=== PATIENT | female | born 1955 | race Caucasian/White ===

== ENCOUNTER 2017-03-15 21:40 | Emergency (ER) | payer BC ==
--- NOTE | 2017-03-15 21:52 | EDM.PDOC ---
ED HPI GENERAL MEDICAL PROBLEM - General Chief Complaint: General Stated Complaint: PAIN AND SWELLING IN RIGHT SIDE Time Seen by Provider: 03/15/17 21:52 - History of Present Illness INITIAL COMMENTS - FREE TEXT/NARRATIVE: 61-year-old female presents to emergency room with some abdominal wall discomfort. This started yesterday while she was reaching for some groceries at a store she reached to hard and felt something pull and give. Since that time she's noticed a swelling in her right upper abdomen. She had an open cholecystectomy many years ago. Since this time the patient's had some discomfort in the area if she moved in the wrong way. Otherwise she is doing okay no nausea and vomiting constipation diarrhea no bloating or significant discomfort unless she does some to aggravate it. Patient's only other abdominal surgery is a gastric sleeve. Patient is treated for type 2 diabetes. She is also treated for hypertension. right upper abdomen, right lateral side Pain Score (Numeric/FACES): 1 - Related Data Allergies Allergy/AdvReac Type Severity Reaction Status Date / Time Penicillins Allergy Hives Verified 03/15/17 21:56 Sulfa (Sulfonamide Allergy Hives Verified 03/15/17 21:56 Antibiotics) ivp dye Allergy Anaphylactic Uncoded 03/15/17 21:56 Shock Home Meds: Home Meds Citalopram [Celexa] 20 mg PO DAILY 03/15/17 [History] Losartan [Cozaar] 50 mg PO DAILY 03/15/17 [History] Tresiba 0 unit SQ ASDIRECTED 03/15/17 [History] metFORMIN HCl [Metformin HCl] 1,000 mg PO BID 03/15/17 [History] ED ROS GENERAL - Review of Systems Review Of Systems: See Below Constitutional: Reports: No Symptoms. Denies: Fever, Chills Respiratory: Reports: No Symptoms Cardiovascular: Reports: No Symptoms GI/Abdominal: Denies: Constipation, Diarrhea, Decreased Appetite, Distension, Nausea, Vomiting : Reports: No Symptoms Neurological: Reports: No Symptoms ED EXAM, GENERAL - Physical Exam Exam: See Below Exam Limited By: No Limitations General Appearance: Alert, No Apparent Distress Respiratory/Chest: No Respiratory Distress, Lungs Clear, Normal Breath Sounds Cardiovascular: Regular Rate, Rhythm, No Edema, No Murmur GI/Abdominal: Normal Bowel Sounds, Soft, Non-Tender, No Organomegaly, Other (In her right upper quadrant she has a swelling that is somewhat tender with palpation most consistent with a ventral hernia just slightly superior to her cholecystectomy incision. This is circular in shape sticks out about a centimeter to a centimeter and a half and is roughly 6-8 cm around) Back Exam: Normal Inspection. No: CVA Tenderness (L), CVA Tenderness (R) Extremities: Normal Inspection, No Pedal Edema Neurological: Alert, Oriented Course - Vital Signs Last Recorded V/S: Last Vital Signs Temp 36.1 C 03/15/17 21:51 Pulse 80 03/15/17 21:51 Resp 18 03/15/17 21:51 BP 125/60 03/15/17 21:51 Pulse Ox 97 03/15/17 21:51 - Re-Assessments/Exams Free Text/Narrative Re-Assessment/Exam: 03/15/17 22:15 Patient's vital signs are stable she is not having any nausea vomiting diarrhea constipation no distention or bloating. It is presumed she has an abdominal wall hernia most likely incisional related. At this point the patient would like to follow-up with her primary provider did offer surgical referral but she' ll follow-up with her primary first. Patient advised in no uncertain terms if she develops any nausea vomiting worsening pain distention to return to the emergency room. Departure - Departure Time of Disposition: 22:16 Disposition: Home, Self-Care 01 Clinical Impression: Ventral hernia - Discharge Information Instructions: Hernia, Adult, [id number] Referrals: Hawa Spencer, PETROL TANKER DRIVER [Primary Care Provider] - Forms: ED Department Discharge Additional Instructions: Return to the emergency room with any questions or problems or worsening symptoms. Return with any nausea vomiting fever or distention. Follow up with your provider here in the clinic on Friday or Friday.
[2017-03-15 21:55] VITALS: BP 125/60
== END 2017-03-15 22:25 | disposition home or self-care (01) ==
LOC: JD.ED 21:40
DX: K43.9 Ventral hernia without obstruction or gangrene (principal); I10 Essential (primary) hypertension; E11.9 Type 2 diabetes mellitus without complications; Z79.84 Long term (current) use of oral hypoglycemic drugs; Z79.899 Other long term (current) drug therapy; Z88.0 Allergy status to penicillin; Z88.2 Allergy status to sulfonamides; Z91.041 Radiographic dye allergy status
CPT/HCPCS: 99282; 99284

== ENCOUNTER 2019-10-04 10:41 | Emergency (ER) | payer MEDICARE, BC ==
[2019-10-04 10:53] VITALS: BP 110/71; PULSE 67
--- NOTE | 2019-10-04 11:05 | EDM.PDOC ---
ED HPI GENERAL MEDICAL PROBLEM - General Chief Complaint: Upper Extremity Injury/Pain Stated Complaint: L WRIST INJURY Time Seen by Provider: 10/04/19 10:50 Source of Information: Reports: Patient, Family (spouse) History Limitations: Reports: No Limitations - History of Present Illness INITIAL COMMENTS - FREE TEXT/NARRATIVE: 4-year-old female presents the ED with acute injuries to both of her wrists. Patient states she slipped in the parking lot and fell backwards on outstretched hands bilaterally. Obvious deformity and severe pain left wrist. Mild to moderate pain right wrist. She also fell on her but talks but states that she did not get seriously hurt her she can walk. Hitting her head or injuring her neck or her lower back significantly. Hitting her knees. Current within the last hour. No open wounds. 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[employer]: Reports: Other (see below) (None.) Bilateral Wrist Pain Score (Numeric/FACES): 6 - Related Data Allergies Allergy/AdvReac Type Severity Reaction Status Date / Time Penicillins Allergy Hives Verified 10/04/19 10:48 Sulfa (Sulfonamide Allergy Hives Verified 10/04/19 10:48 Antibiotics) ivp dye Allergy Anaphylactic Uncoded 10/04/19 10:48 Shock Home Meds: Home Meds Citalopram [Celexa] 0 mg PO DAILY 03/15/17 [History] Losartan [Cozaar] 25 mg PO DAILY 03/15/17 [History] metFORMIN HCl [Metformin HCl] 1,000 mg PO BID 03/15/17 [History] Aspirin 81 mg PO DAILY 10/04/19 [History] Rosuvastatin [Crestor] 0 mg PO DAILY 10/04/19 [History] Past Medical History HEENT 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: None Cardiovascular 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: High Cholesterol, Hypertension Respiratory 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: None Gastrointestinal 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: Other (See Below) Other Gastrointestinal History: hernia Genitourinary 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: None TRANSFER MACHINE 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: Musculoskeletal 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: None Neurological 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: None Psychiatric 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: Depression Endocrine/Metabolic 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: Diabetes, Type II Hematologic 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: None Immunologic 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: None Oncologic (Cancer) 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: None Dermatologic 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: None - Infectious Disease History Infectious Disease 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: None - Past Surgical History GI Surgical 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: Bariatric Procedure, Cholecystectomy Social & Family History - Family History Family Medical History: Noncontributory - Tobacco Use Smoking Status *Q: Never Smoker - Caffeine Use Caffeine Use: Reports: Coffee - Recreational Drug Use Recreational Drug Use: No - Living Situation & Occupation Living situation: Reports: Occupation: Unemployed Review of Systems - Review of Systems Review Of Systems: See Below Constitutional: Reports: No Symptoms Eyes: Reports: No Symptoms Ears: Reports: No Symptoms Nose: Reports: No Symptoms Mouth/Throat: Reports: No Symptoms Respiratory: Reports: No Symptoms Cardiovascular: Reports: No Symptoms, Other (History of hypercholesterolemia. History of hypertension) Musculoskeletal: Reports: Other (Daily injuries to the left wrist and right wrist. Left wrist has obvious deformity) Skin: Reports: Other Neurological: Reports: No Symptoms (No open wounds.) Psychiatric: Reports: No Symptoms ED EXAM, GENERAL - Physical Exam Exam: See Below Exam Limited By: No Limitations General Appearance: Alert, WD/WN, Mild Distress, Other (Vital signs show temperature 36.1 heart rate of 67 and sinus. Respiratory is 16 with O2 sats of 97% on room air. BP is 110/71.) Eye Exam: Bilateral Eye: Normal Inspection Peripheral Pulses: 3+: Radial (L), Radial (R) Extremities: Other (Emanation of the right lower extremity shows that she has full pronation supination at the elbow. She has decreased strawhat sizer strength on the right side. Very mild pain on from compression over the carpal bones and no pain on compression of the scaphoid bone. On the left side there is an obvious deformity of the distal radius. It is swollen and she has very limited mobility of her hand either flexion-extension abduction or abduction. She also has some pain and is somewhat reluctant to perform pronation supination at the elbow.) Neurological: Alert ( Clinically has a fracture distal radius on the left side.) Psychiatric: Normal Affect Skin Exam: Warm, Dry, Intact, Normal Color, No Rash ED TRAUMA EXTREMITY PROCEDURES - Splinting Left Upper Extremity Splint Site: above elbow splint Pre-Procedure NV Status: Normal Post-Procedure NV Status: Normal Splint Material: Fiberglass Splint Design: Gutter (rqadial), Posterior Applied & Form Fitted By: Provider Provider Post-Splint Application NV Check: NV Status Normal Complications: No Course - Vital Signs Last Recorded V/S: Last Vital Signs Temp 36.1 C 10/04/19 10:50 Pulse 67 10/04/19 10:50 Resp 16 10/04/19 10:50 BP 110/71 10/04/19 10:50 Pulse Ox 97 10/04/19 10:50 - Orders/Labs/Meds Orders: Active Orders 24 hr Category Date Time Status DME for Discharge [COMM] Routine Oth 10/04/19 11:44 Ordered - Radiology Interpretation Free Text/Narrative:: 64-year-old female presents to the ED after falling in the parking lot shortly before coming to the ED. She states she fell with outstretched hands backwards suffered injuries to both breasts the left much more so than the right. She landed on her buttock toxin has some pain in the lower back but she can walk without any difficulties. Eyes hitting her head or hurting her neck. Plan x- rays of both wrists to be done 3 view. Pain medication at this time. - Re-Assessments/Exams Free Text/Narrative Re-Assessment/Exam: 10/04/19 11:38 x-rays of the right wrist reveal no deformities or fractures particularly in the scaphoid bone. On the left side she has a fracture that is intra-articular through the distal radius. The ulnar styloid process appears to be intact. Position is actually pretty good although there is slight widening of the medial aspect of the joint. Plan :she'll be placed in a above elbow radial gutter splint to maintain current physician and follow-up with Dr. Beebe in the clinic in the next few days for cast application. Patient will be placed in a sling. She will ice the area one half hour out of every 4 hours today and tomorrow and use Motrin 600 mg every 6 hours necessary for pain relief. Departure - Departure Time of Disposition: 11:40 Disposition: Home, Self-Care 01 Condition: Fair Clinical Impression: Fracture of radius, distal, left, closed Qualifiers: Encounter type: initial encounter Fracture morphology: other intra-articular Qualified Code(s): S52.572A - Other intraarticular fracture of lower end of left radius, initial encounter for closed fracture - Discharge Information *PRESCRIPTION DRUG MONITORING PROGRAM REVIEWED*: Not Applicable *COPY OF PRESCRIPTION DRUG MONITORING REPORT IN PATIENT YANIRA: Not Applicable Instructions: Radial Fracture, Cast or Splint Care, Adult, [id number] Referrals: Hawa Spencer, BOX SEALING MACHINE OPERATOR [Primary Care Provider] - Forms: ED Department Discharge Additional Instructions: Evaluation in the emergency room today in regards to slip and fall on the ice outside falling backwards on outstretched both hands. Are there was injuries to both wrists the left much more so than the right. X-rays of the right wrist do not reveal any fractures in the carpal bones or the distal radius or ulna. On the left side there is a fracture that is intra-articular means it enters the joint space of the wrist of the distal radius on the left side. The radial styloid process is okay. You're therefore placed in a radial gutter Ortho-Glass splint follow-up with Dr. Beebe orthopedic surgeon in clinic in the next 3 or 4 days for cast application. Position at this time is pretty close to anatomical and I don't believe it requires surgery. Suggest sling for the next 3 days until cast application. Motrin 600 mg every 6 hours as necessary for pain relief. Try ice even with over splint, one half hour out of every 4 hours today and tomorrow to reduce swelling. Dr. Beebe's office will call you with an appointment time either later today or first thing tomorrow to come in for cast placement. Sepsis Event Note - Evaluation Sepsis Screening Result: No Definite Risk - Focused Exam Vital Signs: Vital Signs Temp Pulse Resp BP Pulse Ox 10/04/19 10:50 36.1 C 67 16 110/71 97 Date Exam was Performed: 10/04/19 Time Exam was Performed: 12:02 - My Orders Last 24 Hours: My Active Orders 10/04/19 11:44 DME for Discharge [COMM] Routine - Assessment/Plan Last 24 Hours: My Active Orders 10/04/19 11:44 DME for Discharge [COMM] Routine
--- NOTE | 2019-10-04 11:46 | CR ---
Left wrist: Four views of the left wrist were obtained. Comparison: No previous wrist study. Distal radial fracture is seen which shows articular extension. Mild posterior impaction is seen. Nondisplaced ulnar styloid avulsion fracture is noted. Mild degenerative change is noted within the CMC joint of the thumb. Soft tissue swelling is noted. No additional abnormality is appreciated. Impression: 1. Distal radial fracture with articular extension and mild posterior impaction. 2. Nondisplaced ulnar styloid avulsion fracture. 3. Other findings as described above. Diagnostic code #3 This report was dictated in [place] Standard Time
--- NOTE | 2019-10-04 11:46 | CR ---
Right wrist: Four views of the right wrist were obtained. Comparison: No previous right wrist exam. Mild joint space narrowing is noted off the distal navicular bone. No fracture, dislocation or other bony abnormality is identified. Impression: 1. Slight degenerative change. 2. Nothing acute is appreciated on right wrist exam. Diagnostic code #2 This report was dictated in [place] Standard Time
== END 2019-10-04 12:15 | disposition home or self-care (01) ==
LOC: JD.ED 10:41
DX: S52.572A Other intraarticular fracture of lower end of left radius, initial encounter for closed fracture (principal); I10 Essential (primary) hypertension; F32.9 Major depressive disorder, single episode, unspecified; E11.9 Type 2 diabetes mellitus without complications; Z88.0 Allergy status to penicillin; Z88.2 Allergy status to sulfonamides; Z91.041 Radiographic dye allergy status; Z91.09 Other allergy status, other than to drugs and biological substances; Z79.84 Long term (current) use of oral hypoglycemic drugs; Z79.899 Other long term (current) drug therapy; Z79.82 Long term (current) use of aspirin; W00.0XXA Fall on same level due to ice and snow, initial encounter; Y92.481 Parking lot as the place of occurrence of the external cause
CPT/HCPCS: 29105; 29125; 73110-26-LT; 73110-26-RT; 73110-LT; 73110-RT; 99282-25; 99283

== ENCOUNTER 2022-05-07 06:52 | Day surgery (SDC) | payer MEDICARE, BC ==
[~2022-05-07 06:52] MED LIST: Lactated Ringers 1,000 ML IV SCH; Lidocaine 1%/Sod Bicarbonate in NS 8.4% 1 ML Syringe IDERM PRN; Sodium Chloride 0.9% 10 ML Syringe FLUSH PRN; Sodium Chloride 0.9% 10 ML Syringe FLUSH SCH
[2022-05-07] MEDS ORDERED: Propofol 200 MG/20 ML SDV ONE ×2 (06:58→08:10)
[2022-05-07] MEDS ORDERED: fentaNYL 100 MCG/2 ML SDV ONE (06:58)
[2022-05-07] MEDS ORDERED: Lidocaine 1% 4 ML ONE (06:58)
[2022-05-07] MEDS ORDERED: Lactated Ringers 1,000 ML ONE (07:57)
[2022-05-07 10:52] VITALS: BP 114/70; PULSE 63
== END 2022-05-07 09:44 | disposition home or self-care (01) ==
LOC: JD.SDS 06:52
PROVIDERS: ATTEND Surgery
DX: Z12.11 Encounter for screening for malignant neoplasm of colon (principal); I10 Essential (primary) hypertension; F41.9 Anxiety disorder, unspecified; F32.A Depression, unspecified; E78.00 Pure hypercholesterolemia, unspecified; E11.9 Type 2 diabetes mellitus without complications; R41.3 Other amnesia; Z88.0 Allergy status to penicillin; Z88.2 Allergy status to sulfonamides; Z91.041 Radiographic dye allergy status; Z90.49 Acquired absence of other specified parts of digestive tract; Z86.16 Personal history of COVID-19; Z87.891 Personal history of nicotine dependence; Z98.890 Other specified postprocedural states; Z79.84 Long term (current) use of oral hypoglycemic drugs; Z79.4 Long term (current) use of insulin; Z79.899 Other long term (current) drug therapy; Z79.82 Long term (current) use of aspirin; Z79.2 Long term (current) use of antibiotics
CPT/HCPCS: G0121; J2704; J3010; J7120; 00812

== ENCOUNTER 2022-06-17 16:19 | Emergency (ER) | payer MEDICARE, BC ==
[2022-06-17] MEDS ORDERED: Sodium Chloride 0.9% 10 ML Syringe FLUSH PRN (16:30)
[2022-06-17 17:54] LABS: ESTIMATED GFR 81 mL/min (>60)
[2022-06-17 18:45] VITALS: BP 106/69; PULSE 80
== END 2022-06-17 18:40 | disposition home or self-care (01) ==
LOC: JD.ED 16:19
DX: R00.0 Tachycardia, unspecified (principal); R11.0 Nausea; T43.295A Adverse effect of other antidepressants, initial encounter; E11.9 Type 2 diabetes mellitus without complications; I10 Essential (primary) hypertension; E78.00 Pure hypercholesterolemia, unspecified; Z86.16 Personal history of COVID-19; Z88.0 Allergy status to penicillin; Z88.2 Allergy status to sulfonamides; Z91.041 Radiographic dye allergy status; Z79.4 Long term (current) use of insulin; Z79.82 Long term (current) use of aspirin; Z79.899 Other long term (current) drug therapy; Z87.891 Personal history of nicotine dependence
CPT/HCPCS: 36415; 71045; 80053; 83735; 83880; 84484; 85025; 85610; 85730; 93005; 99285; J3490; 93010; 99284

== ENCOUNTER 2024-08-04 05:04 | Emergency (ER) | payer MEDICARE, BC ==
[2024-08-04] MEDS ORDERED: Sodium Chloride 0.9% 10 ML Syringe FLUSH PRN (05:13)
[2024-08-04 05:32] VITALS: BP 120/71; PULSE 94
[2024-08-04 05:40] LABS: BASOPHILS PERCENT AUTO 0.4 % (0.0-1.0); EOSINOPHILS PERCENT AUTO 0.3 % (0.0-6.0); HEMATOCRIT 39.3 % (37.0-47.0); HEMOGLOBIN 13.5 gm/dl (12.0-16.0); IMMATURE GRAN ABSOLUTE AUTO 0.03 K/mm3 (0.00-0.05); IMMATURE GRAN PERCENT AUTO 0.3 % (0.0-0.4); LYMPHOCYTES PERCENT AUTO 18.6 % (24.0-44.0); MEAN CORPUSCULAR HEMOGLOBIN 29.8 pg (28.0-32.0); MEAN CORPUSCULAR HGB CONC 34.4 g/dl (32.0-36.0); MEAN CORPUSCULAR VOLUME 86.8 fl (83.0-99.0); MEAN PLATELET VOLUME 9.1 fl (9.4-12.3); MONOCYTES ABSOLUTE AUTO 1.1 K/mm3 (0.0-0.8); MONOCYTES PERCENT AUTO 10.3 % (0.0-8.0); NEUTROPHILS ABSOLUTE AUTO 7.5 K/mm3 (1.8-7.7); NEUTROPHILS PERCENT AUTO 70.1 % (41.0-71.0); PLATELET COUNT,PLT 254 K/mm3 (150-400); RED BLOOD CELL COUNT 4.53 M/mm3 (4.10-5.30); WHITE BLOOD CELL COUNT,WBC 10.74 K/mm3 (3.9-11.3)
[2024-08-04 05:57] LABS: ALBUMIN 3.8 g/dl (3.4-5.0); ANION GAP 15.9 (5-15); BILIRUBIN TOTAL 0.5 mg/dL (0.2-1.0); BUN/CREATININE RATIO 18.3 (14-18); CALCIUM 9.4 mg/dL (8.5-10.1); CREATININE 0.6 mg/dL (0.55-1.02); EST CRCL DRUG DOSING (CG) 76.42 mL/min; MAGNESIUM 2.1 mg/dL (1.8-2.4); POTASSIUM,K 3.9 mEq/L (3.5-5.1); PROTEIN TOTAL,TP 7.5 g/dl (6.4-8.2)
[2024-08-04] MEDS: Aspirin 81 MG Tab.Chew PO ONE (05:58)
== END 2024-08-04 06:52 | disposition home or self-care (01) ==
LOC: JD.ED 05:04 → MERGE 05:04 → JD.ED 06:52
DX: R07.89 Other chest pain (principal); I10 Essential (primary) hypertension; Z88.0 Allergy status to penicillin; Z88.2 Allergy status to sulfonamides; Z91.041 Radiographic dye allergy status
CPT/HCPCS: 36415; 71045; 71045-26; 80053; 83690; 83735; 84484; 85025; 85379; 93005; 93010; 99284; 99285

== ENCOUNTER 2024-08-31 09:13 | Day surgery (SDC) | payer MEDICARE, BC ==
[~2024-08-31 09:13] MED LIST changes: -Lidocaine 1%/Sod Bicarbonate in NS 8.4% 1 ML Syringe IDERM PRN
[2024-08-31] MEDS ORDERED: Propofol 200 MG/20 ML SDV ONE ×2 (10:37→11:08)
[2024-08-31] MEDS ORDERED: Lidocaine 2% 5 ML SDV ONE (10:37)
[2024-08-31] MEDS: Lactated Ringers 1,000 ML IV SCH (11:10)
[2024-08-31] MEDS ORDERED: Lidocaine 1% 4 ML ONE (11:13)
[2024-08-31 12:24] VITALS: BP 110/71; PULSE 71
== END 2024-08-31 12:30 | disposition home or self-care (01) ==
LOC: JD.SDS 09:13
PROVIDERS: ATTEND Surgery
DX: R12 Heartburn (principal); K44.9 Diaphragmatic hernia without obstruction or gangrene; R07.9 Chest pain, unspecified; I10 Essential (primary) hypertension; E11.9 Type 2 diabetes mellitus without complications; F32.A Depression, unspecified; E78.00 Pure hypercholesterolemia, unspecified; Z87.891 Personal history of nicotine dependence; Z79.84 Long term (current) use of oral hypoglycemic drugs; Z79.4 Long term (current) use of insulin; Z79.899 Other long term (current) drug therapy; Z88.0 Allergy status to penicillin; Z88.2 Allergy status to sulfonamides; Z91.041 Radiographic dye allergy status
CPT/HCPCS: 43239; J2704; J7120; 00731; J3490